=== PATIENT | male | born 1980 | race Caucasian/White ===

== ENCOUNTER 2018-09-17 15:12 | Inpatient (IN) | payer OTHER ==
[2018-09-17] MEDS ORDERED: NS 0.9% 1000 ML*IV.FLUID IV ONE (18:17)
[2018-09-17] MEDS ORDERED: ceFAZolin 1 GM ADVAN(*) 1 GM in NS 0.9% 50 ML* 50 ML IVPB ONE (18:17)
--- NOTE | 2018-09-17 19:01 | ED ---
Skin Complaint - HPI Summary HPI Summary: A 38 y/o male with hx IV drug use presents to [facility] with a chief complaint of abscesses on both arms, redness and swelling of both forearms since 09/15/18. He has been injecting himself with heroin for the past 2-3 yrs, after a period of abstinence for 12 years. He has been using heroin intermittently for 20 years but was also clean for a period of 12 years. He was sent to the ED for possible cellulitis, abscesses vs DVT. Per triage note, he rates his pain as 8/ 10 and also c/o SOB and a low-grade fever. He claims that he last ate at 18: 00. The patient was at [facility] ([facility]) when he was referred to the ED. Pt states that [facility] is a harm reduction program where they try to help pt have access to sterile needles etc, that it is not an abstinence program. Vital signs at triage: HR 97 bpm, BP 145/84 - History of Current Complaint Chief Complaint: EDRashSkinAbscess Time Seen by Provider: 09/17/18 18:17 Stated Complaint: BI LATERAL ARM SWELLING Hx Obtained From: Patient Onset/Duration: Started Days Ago, Still Present Skin Exposure Onset/Duration: Days Ago - self-injecting heroin Timing: Constant, Lasting Days Onset Severity: Severe Current Severity: Severe Pain Intensity: 8 Pain Scale Used: 0-10 Numeric Skin Location: Arm - bilateral forearms Character: Swelling, Pain, Redness, Raised - draining in sites, Painful Aggravating Symptom(s): Nothing Alleviating Symptom(s): Nothing Associated Signs & Symptoms: Chills, Rash - redness bilat forearms, Drainage, Tenderness, Joint Swelling - left thumb Related History: Other: - IV heroin injections - Allergy/Home Medications Allergies/Adverse Reactions: Allergies Allergy/AdvReac Type Severity Reaction Status Date / Time No Known Allergies Allergy Verified 09/17/18 19:25 PMH/Surg Hx/FS Hx/Imm Hx Previously Healthy: No - IVDA for 2-3 years Endocrine/Hematology History: Denies: Hx Diabetes Cardiovascular History: Denies: Hx Hypertension History: Denies: Hx Renal Disease - Surgical History Surgery Procedure, Year, and Place: no surgical hx per pt Infectious Disease History: No Infectious Disease History: Denies: Traveled Outside the [place] in Last 30 Days - Family History Known Family History: Positive: Other - Mother and father are both alive. Grandmother w/ Hx of dementia. - Social History Occupation: Employed Full-time Lives: Alone Alcohol Use: None Hx Substance Use: Yes Substance Use Type: Reports: Heroin, Marijuana Hx Tobacco Use: Yes Smoking Status (MU): Former Smoker Review of Systems Positive: Fever - fever of 100 Cardiovascular: Negative Positive: Shortness Of Breath Gastrointestinal: Negative Positive: no symptoms reported Positive: Arthralgia, Myalgia, Other - bilateral red, swollen forearms with multiple raised areas, and draining left thumb wound Positive: Rash, Other - positive: abscess, redness, swelling bilateral arms. Neurological: Negative Psychological: Normal All Other Systems Reviewed And Are Negative: Yes Physical Exam - Summary Physical Exam Summary: Appearance: Well-appearing, severe pain distress, well-nourished Skin: Warm, color reflects adequate perfusion, no track rondon on feet, Bilateral upper extremities with multiple open, raised areas and redness, Left dorsal thumb 3cm open draining abscess Head: Normal Head/Face inspection, atraumatic Eyes: Conjunctiva clear ENT: Normal inspection Neck: Supple, no nodes, no JVD Respiratory: Lungs clear, normal breath sounds, no respiratory distress Cardio: RRR, No murmur, pulses normal, brisk capillary refill Abdomen: Soft, nontender Bowel sounds: Present Musculoskeletal: Strength Intact/ROM intact, no calf tenderness, swelling bilateral hands with open area left thumb as above, full ROM of bilateral wrists and elbows with redness, multiple raised, "pointing" areas from hands to bilateral antecubital fossae Psychological: Normal, calm and cooperative, not intoxicated. Neuro: Alert, muscle tone normal, no focal deficit Triage Information Reviewed: Yes Vital Signs On Initial Exam: Initial Vitals Temp Pulse Resp BP Pulse Ox 100 F 97 18 145/84 100 09/17/18 15:18 09/17/18 15:18 09/17/18 15:18 09/17/18 15:18 09/17/18 15:18 Vital Signs Reviewed: Yes Diagnostics - Vital Signs Vital Signs Temp Pulse Resp BP Pulse Ox 09/17/18 17:49 100.2 F 91 16 135/92 100 09/17/18 17:14 100.6 F 102 18 146/74 100 09/17/18 15:18 100 F 97 18 145/84 100 - Laboratory Result Diagrams: 09/21/18 06:35 09/18/18 06:46 Lab Statement: Any lab studies that have been ordered have been reviewed, and results considered in the medical decision making process. - Radiology CXR Radiology Interpretation Completed By: ED Physician Summary of Radiographic Findings: NAD. Pending official radiology report. second CXR Radiology Interpretation Completed By: ED Physician Summary of Radiographic Findings: Left subclavean in place. No PTX. Pending official radiology report. - EKG 20:47 Cardiac Rate: Other Rate - Sinus arrythmia at [address] Segment: Non-Specific Ectopy: None EKG Comparison: Other - no prior Summary of EKG Findings: Sinus arrythmia at 98 bpm, nl AVIVCT, nl QTc, no acute changes, no prior to compare with. - Additional Comments Diagnostic Additional Comments: Bilateral Upper Extremity Ultrasounds in progress with results pending at time of change of shift, and sign out of care to hospitalists, 2200, 09/17/18. Re-Evaluation - Re-Evaluation First Eval Re-Evaluation Time: 20:20 Change: Unchanged Comment: Pt is difficult venous access. Blood cultures, fluid and abx are delayed. Dr. Angulo will consult for central venous access. Second Eval Re-Evaluation Time: 21:30 Change: Unchanged Comment: Patient still reports pain. Was at [facility] and referred here. He claims he has an appointment at [facility] to try to start taking suboxone. Course/Dx - Course Course Of Treatment: A 38 y/o male presents to [facility] with a chief complaint of abscesses, redness and swelling of both forearms since 09/15/18. He has a Hx of injecting himself with heroin. The physical exam revealed bilateral upper extremities with multiple open areas and raised and redness, Left dorsal thumb 3cm open draining abscess and bilateral hand swelling. Pt is difficult venous access. Blood cultures, fluids and abx are delayed per sepsis protocol due to difficult venous access. Tmax in the ED is 100.6. Left hand wound is cultured. Left subclavian central line placed by Dr. Angulo for access and phlebotomy. CXR post central line placement shows good line placement, no PTX. Ultrasound of both upper extremities is ordered to eval abscesses vs DVT, with results pending at time care is given to hospitalists. Case discussed with Dr. Ramirez, hospitalist, who assists with choosing broader spectrum antibiotic coverage for likely polymicrobial infection. The patient will be admitted and is agreeable with this plan. - Differential Diagnoses - Skin Complaint Differential Diagnoses: Abscess, Lymphangitis, Other - DVT, sepsis - Diagnoses Provider Diagnoses: Cellulitis, Abscess of multiple sites, Heroin abuse, Sepsis - Physician Notifications Discussed Care Of Patient With: Mary Ramirez Time Discussed With Above Provider: 20:35 Instructed by Provider To: Admit As Inpatient - Critical Care Time Critical Care Time: 30-74 min - 30min Discharge - Sign-Out/Discharge Documenting (check all that apply): Patient Departure - admit - Discharge Plan Condition: Good Disposition: ADMITTED TO [facility] - Billing Disposition and Condition Condition: GOOD Disposition: Admitted to [facility] - Attestation Statements Document Initiated by Lety: Yes Documenting Scribe: Montrell Silverio Provider For Whom Lety is Documenting (Include Credential): Dr. Amelia Lester MD Scribe Attestation: Montrell Ro scribed for Dr. Amelia Lester MD on 09/24/18 at 1655. Scribe Documentation Reviewed: Yes Provider Attestation: The documentation as recorded by the Montrell goff accurately reflects the service I personally performed and the decisions made by me, Dr. Amelia Lester MD Status of Scribe Document: Viewed
[2018-09-17] MEDS ORDERED: Lidocaine 2% EPI 1:200000 MPF* 10 ML VIAL INJ ONE (20:20)
[2018-09-17] MEDS ORDERED: Lidocaine 1%* 5 ML VIAL ONE (20:24)
[2018-09-17] MEDS ORDERED: Lidocaine 1% INJ* 10 MG/ML 30 ML SDV ONE (20:27)
[2018-09-17 20:32] LABS: ABS Basophils 0 10^3/ul (0-0.2); ABS Eosinophils 0.1 10^3/ul (0-0.6); ABS Lymphocytes 1.2 10^3/ul (1.0-4.8); ABS Monocytes 1.3 10^3/ul (0-0.8); ABS Neutrophils 12.4 10^3/ul (1.5-7.7); ABS Nucleated RBC 0 10^3/ul; Eosinophil % 0.4 %; Hematocrit 39 % (42-52); Hemoglobin 13.2 g/dl (14.0-18.0); Lymphocyte % 8.3 %; Mean Corpuscular HGB Conc 34 g/dl (31-36); Mean Corpuscular Hemoglobin 28 pg (27-31); Mean Corpuscular Volume 83 fL (80-94); Mean Platelet Volume 7.4 fL (7.4-10.4); Nucleated Red Blood Cells % 0; Platelet Count 369 10^3/ul (150-450); Red Blood Count 4.71 10^6/ul (4.00-5.40); Red Cell Distribution Width 14 % (10.5-15)
--- NOTE | 2018-09-17 20:43 | ED ---
Re-Evaluation - Re-Evaluation First Eval Re-Evaluation Time: 20:20 Change: Unchanged Comment: Pt is difficult venous access. Blood cultures and abx may be delayed. Course/Dx - Course Course Of Treatment: Pt is difficult venous access. Blood cultures and abx may be delayed. - Diagnoses Provider Diagnoses: Cellulitis Discharge - Sign-Out/Discharge Documenting (check all that apply): Patient Departure - Discharge Plan Condition: Good Disposition: ADMITTED TO [facility] Referrals: [facility] - Jhonny BULL [Primary Care Provider] - - Billing Disposition and Condition Condition: GOOD Disposition: Admitted to [facility] Procedures - Central Line Left Subclavian Central Line Lumen: triple Central Line Procedure: betadine prep, sterile drapes applied, sterile dressing applied Central Line Position: subclavian (L) Anesthesia: Lidocaine cc's of anesthesia: 10 Complications: none Central Line Post Position: sutured, good blood return, position confirmed w/ CXR
[2018-09-17 20:45] LABS: Activated Partial Thrombo Time 30.8 seconds (26.0-36.3); INR 1.19 (0.77-1.02)
[2018-09-17] MEDS ORDERED: Cefepime 2 GM in Dextrose(*) 2 GM/50 ML BAG IV ONE (20:45)
[2018-09-17 20:50] LABS: Albumin/Globulin Ratio 1.4 (1-3); BUN/Creatinine Ratio 12.3 (8-20); C Reactive Protein 127.07 mg/L (<8.01); Calcium 8.8 mg/dL (8.6-10.3); EGFR Non-African American 138.2 (>60); Globulin 2.9 g/dL (2-4); Total Bilirubin 0.6 mg/dL (0.2-1.0); Total Protein 6.9 g/dL (6.4-8.9)
[2018-09-17] MEDS ORDERED: Vancomycin(*) 1,000 MG VIAL IVPB SCH (21:00)
[2018-09-17] MEDS ORDERED: Acetaminophen TAB* 325 MG PO PRN (21:23)
[2018-09-17] MEDS ORDERED: Al Hydrox/Mg Hydrox/Simet LIQ* 30 ML UDC PO PRN (21:23)
[2018-09-17] MEDS ORDERED: Docusate CAP* 100 MG PO PRN (21:23)
[2018-09-17] MEDS ORDERED: Ondansetron INJ* 2 MG/ML VIAL IV PRN (21:23)
[2018-09-17] MEDS ORDERED: Senna TAB PO PRN (21:23)
[2018-09-17] MEDS ORDERED: Vancomycin(*) 2,000 MG in NS 0.9% 500 ML* 500 ML IVPB ONE (21:30)
[2018-09-17] MEDS: Heparin VIAL(*) 5000 UNITS/ML VIAL (FIVE THOUSAND) SUBCUT SCH (22:00)
[2018-09-17] MEDS ORDERED: cefTRIAXone(*) 1 GM in NS 0.9% 50 ML* 50 ML IVPB SCH (22:00)
[2018-09-17] MEDS: Morphine VIAL* 4 MG/ML VIAL (1 ml vial) IV PRN (22:39)
--- NOTE | 2018-09-17 23:58 | HP ---
HISTORY AND PHYSICAL: DATE OF ADMISSION: 09/17/18 TIME OF EVALUATION: 2100 PRIMARY CARE PHYSICIAN: The patient does not have a primary care physician. CHIEF COMPLAINT: Bilateral arm swelling, redness, and drainage. HISTORY OF PRESENT ILLNESS: This is a 38-year-old male with a past medical history of IV drug use, who presented to the emergency room with worsening bilateral redness, swelling, and pain. The patient states he relapsed using IV heroin for the past 2 to 3 years. He states he tries to be as sterile as possible using the needle exchange; however, 2 days ago, he noticed both arms with redness, swelling, and pain. This morning his left hand ruptured with purulent drainage. He has had a fever at home. No nausea, vomiting, or diarrhea. No chest pain or shortness of breath. No abdominal pain, no urinary symptoms. He states he uses IV heroin routinely. He sometimes alternates with taking oral Suboxone when he tries to take a break. He has spoken to the people at [facility] and he is planning to follow up with them next week, but has not yet established with them. He denies any history of significant abscess or cellulitis in the past. He states he has had some redness that would go away on its own in the past. He has been sober for 12 years up until 2 to 3 years ago. In the emergency room, the patient had labs, imaging and initially was going to receive cefazolin, but switched to vancomycin, cefepime, and referred to the hospitalist service for further evaluation. PAST MEDICAL HISTORY: History of IV drug use. MEDICATIONS: Ibuprofen as needed. ALLERGIES: No known drug allergies. FAMILY HISTORY: Reviewed and noncontributory. 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 He lives alone. As mentioned, he uses IV drugs with heroin for the past 2 to 3 years, initially started as a teenager and was sober for about 10 years. He occasionally smokes marijuana. He quit cigarette smoking 15 to 20 years ago. No alcohol use. He does not have a healthcare proxy at this time, but understands the importance of obtaining one. CODE STATUS: Full code. REVIEW OF SYSTEMS: A 14-point review of systems as mentioned in the HPI, otherwise negative. PHYSICAL EXAMINATION GENERAL: No acute distress, resting comfortably with his girlfriend at the bedside. VITAL SIGNS: T-max 100.6, pulse rate 91, respiratory rate 16, oxygen saturation 100% on room air, blood pressure 135/92. HEENT: Head: Normocephalic. Pupils equal and reactive, anicteric. Oropharynx : Mucous membranes moist. NECK: Supple. No adenopathy. RESPIRATORY: Clear to auscultation. No wheezes, rhonchi, or rales. CARDIAC: Regular rate and rhythm. Tachycardia with a soft systolic murmur heard throughout. ABDOMEN: Soft, nontender, nondistended. EXTREMITIES: The patient with bilateral upper extremity erythema. Left is significantly worse with patches of erythema, significant edema in his left forearm, most prominent over the dorsum of his left hand with a 2 cm circular open purulent drainage, indurated and fluctuant. No pain. No significant erythema over the wrist or elbow joint. He has smaller erythematous indurated lesions that appeared to be track rondon on his right upper extremity. Both bilateral upper extremities are significantly edematous. Lower extremities are unremarkable. NEUROLOGIC: Alert and oriented x3. No gross focal neurologic deficits. LABORATORY DATA: White count is 15, hemoglobin 13.2, hematocrit 39, platelets 269. INR is 1.19. Sodium 131, potassium 4, chloride 99, bicarb 26. BUN 8 and creatinine 0.65. Glucose 120. CRP is 127. Lactic acid 0.9. ASSESSMENT: This is a 38-year-old male with past medical history of intravenous drug use, presents to the emergency room with bilateral upper extremity redness, swelling, and pain. 1. Bilateral upper extremity redness, swelling, and pain with purulent drainage in the left hand. Assessment: The patient with intravenous drug use, found to have cellulitis with abscess, most prominent and concerning is the left hand and left forearm. The patient is going to get switched over to vancomycin and he got a dose of cefepime. Will change to ceftriaxone and vancomycin per Dr. Jackson's recommendation until cultures return. He did give blood cultures in the emergency room. We will order a wound culture of the purulent drainage on his left hand. We will order a soft tissue ultrasound to look for any deeper abscess. He also has a Doppler ordered by the ER. We will continue him on IV fluids. We will place him on Toradol and morphine. He should get started on Suboxone at some point and follow up with [facility]. I also will put in a Social Work consult as well. I spoke with Dr. Guerrero regarding I and D. She recommended chlorhexidine, warm soaks 4 times a day, keep the arm elevated and she will follow up with him in the morning. We will keep him n.p.o. in case he needs further debridement. 2. FEN: Regular diet. N.p.o. after midnight. IV fluids. 3. DVT prophylaxis: Patient scores 1, but I suspect he will be limited mobility. We will place him on heparin subcu t.i.d. 4. Code status. Full code. PATIENT TIME: Greater than 45 minutes was spent doing the history and physical , more than half the time spent in direct patient contact and critical care time. [id number]/[facility] #: [id number] RONIT
[2018-09-18] MEDS: Zolpidem TAB* 10 MG PO PRN (00:34)
[2018-09-18] MEDS: Ketorolac INJ* 30 MG/ML 1 ML VIAL IV PUSH PRN ×3 (00:35→17:49)
[2018-09-18] MEDS: NS 0.9% 1000 ML* 1,000 ML IV SCH ×3 (00:58→18:19)
[2018-09-18] MEDS: Morphine VIAL* 4 MG/ML VIAL (1 ml vial) IV PRN ×6 (02:39→22:07)
[2018-09-18] MEDS: cefTRIAXone(*) 1 GM in NS 0.9% 50 ML* 50 ML IVPB SCH (06:38)
[2018-09-18] MEDS: Heparin VIAL(*) 5000 UNITS/ML VIAL (FIVE THOUSAND) SUBCUT SCH ×3 (06:39→22:09)
[2018-09-18 07:12] LABS: ABS Basophils 0.1 10^3/ul (0-0.2); ABS Eosinophils 0.1 10^3/ul (0-0.6); ABS Lymphocytes 1.7 10^3/ul (1.0-4.8); ABS Monocytes 1.3 10^3/ul (0-0.8); ABS Neutrophils 9.7 10^3/ul (1.5-7.7); ABS Nucleated RBC 0 10^3/ul; Eosinophil % 0.5 %; Hematocrit 34 % (42-52); Hemoglobin 11.6 g/dl (14.0-18.0); Lymphocyte % 13.5 %; Mean Corpuscular HGB Conc 34 g/dl (31-36); Mean Corpuscular Hemoglobin 28 pg (27-31); Mean Corpuscular Volume 83 fL (80-94); Mean Platelet Volume 7.6 fL (7.4-10.4); Nucleated Red Blood Cells % 0; Platelet Count 320 10^3/ul (150-450); Red Blood Count 4.14 10^6/ul (4.00-5.40); Red Cell Distribution Width 14 % (10.5-15); White Blood Count 12.9 10^3/ul (3.5-10.8)
[2018-09-18 07:17] LABS: BUN/Creatinine Ratio 11.9 (8-20); EGFR Non-African American 154.6 (>60); Potassium 3.9 mmol/L (3.5-5.0)
--- NOTE | 2018-09-18 09:44 | PN ---
Subjective Date of Service: 09/18/18 Interval History: Pain control OK. Patient feels all infected areas seem somewhat better today. Appetite OK. Objective Active Medications: Acetaminophen (Tylenol Tab*) 650 mg PO Q4H PRN PRN Reason: FEVER/PAIN Al Hydrox/Mg Hydrox/Simethicone (Maalox Plus*) 30 ml PO Q6H PRN PRN Reason: INDIGESTION Docusate Sodium (Colace Cap*) 100 mg PO BID PRN PRN Reason: CONSTIPATION Heparin Sodium (Porcine) (Heparin Vial(*)) 5,000 units SUBCUT Q8HR [facility] Last Admin: 09/18/18 06:39 Dose: 5,000 units Sodium Chloride (Ns 0.9% 1000 Ml*) 1,000 mls @ 125 mls/hr IV PER RATE [facility] Last Admin: 09/18/18 00:58 Dose: 125 mls/hr Ceftriaxone Sodium 1 gm/ (Sodium Chloride) 50 mls @ 200 mls/hr IVPB Q24H [facility] Last Admin: 09/18/18 06:38 Dose: 200 mls/hr Ketorolac Tromethamine (Toradol Inj*) 30 mg IV PUSH Q6H PRN PRN Reason: PAIN Last Admin: 09/18/18 00:35 Dose: 30 mg Morphine Sulfate (Morphine Vial*) 4 mg IV Q4H PRN PRN Reason: PAIN - MILD Last Admin: 09/18/18 06:40 Dose: 4 mg Ondansetron HCl (Zofran Inj*) 4 mg IV Q4H PRN PRN Reason: NAUSEA/VOMITING Senna (Senokot Tab*) 1 tab PO BID PRN PRN Reason: CONSTIPATION Zolpidem Tartrate (Ambien Tab*) 10 mg PO BEDTIME PRN PRN Reason: SLEEP Last Admin: 09/18/18 00:34 Dose: 10 mg Vital Signs - 8 hr 09/18/18 09/18/18 09/18/18 01:56 02:23 02:39 Temperature 99.1 F Pulse Rate Respiratory 18 18 Rate Blood Pressure (mmHg) O2 Sat by Pulse Oximetry 09/18/18 09/18/18 09/18/18 03:13 03:40 06:40 Temperature 99.0 F Pulse Rate 82 Respiratory 21 16 18 Rate Blood Pressure 112/58 (mmHg) O2 Sat by Pulse 93 Oximetry 09/18/18 07:16 Temperature 99.5 F Pulse Rate 87 Respiratory 16 Rate Blood Pressure 118/61 (mmHg) O2 Sat by Pulse 98 Oximetry Oxygen Devices in Use Now: None Appearance: Alert, partly up in bed. In good spirits. Looks comfortable. Extremities: No Edema, No Clubbing, Cyanosis, - Skin: No Nodules or Sclerosis, - - R forearm phlegmon, L forearm phlgmon just below elbow noted. Ulcerated area L thenar eminence. Neurological: Alert and Oriented x 3, NL Sensation Result Diagrams: 09/18/18 06:46 09/18/18 06:46 Microbiology and Other Data: Microbiology 09/17/18 21:00 Skin and Soft Tissue MRSA/MSSA (PCR - Final Hand Left Mrsa Negative S.aureus Positive Gram Stain - Final Assess/Plan/Problems-Billing Assessment:
--- NOTE | 2018-09-18 09:48 | PN ---
Subjective Date of Service: 09/18/18 Interval History: See earlier note today. Objective Active Medications: Acetaminophen (Tylenol Tab*) 650 mg PO Q4H PRN PRN Reason: FEVER/PAIN Al Hydrox/Mg Hydrox/Simethicone (Maalox Plus*) 30 ml PO Q6H PRN PRN Reason: INDIGESTION Docusate Sodium (Colace Cap*) 100 mg PO BID PRN PRN Reason: CONSTIPATION Heparin Sodium (Porcine) (Heparin Vial(*)) 5,000 units SUBCUT Q8HR [facility] Last Admin: 09/18/18 06:39 Dose: 5,000 units Sodium Chloride (Ns 0.9% 1000 Ml*) 1,000 mls @ 125 mls/hr IV PER RATE [facility] Last Admin: 09/18/18 00:58 Dose: 125 mls/hr Ceftriaxone Sodium 1 gm/ (Sodium Chloride) 50 mls @ 200 mls/hr IVPB Q24H [facility] Last Admin: 09/18/18 06:38 Dose: 200 mls/hr Ketorolac Tromethamine (Toradol Inj*) 30 mg IV PUSH Q6H PRN PRN Reason: PAIN Last Admin: 09/18/18 00:35 Dose: 30 mg Morphine Sulfate (Morphine Vial*) 4 mg IV Q4H PRN PRN Reason: PAIN - MILD Last Admin: 09/18/18 06:40 Dose: 4 mg Ondansetron HCl (Zofran Inj*) 4 mg IV Q4H PRN PRN Reason: NAUSEA/VOMITING Senna (Senokot Tab*) 1 tab PO BID PRN PRN Reason: CONSTIPATION Zolpidem Tartrate (Ambien Tab*) 10 mg PO BEDTIME PRN PRN Reason: SLEEP Last Admin: 09/18/18 00:34 Dose: 10 mg Vital Signs - 8 hr 09/18/18 09/18/18 09/18/18 01:56 02:23 02:39 Temperature 99.1 F Pulse Rate Respiratory 18 18 Rate Blood Pressure (mmHg) O2 Sat by Pulse Oximetry 09/18/18 09/18/18 09/18/18 03:13 03:40 06:40 Temperature 99.0 F Pulse Rate 82 Respiratory 21 16 18 Rate Blood Pressure 112/58 (mmHg) O2 Sat by Pulse 93 Oximetry 09/18/18 07:16 Temperature 99.5 F Pulse Rate 87 Respiratory 16 Rate Blood Pressure 118/61 (mmHg) O2 Sat by Pulse 98 Oximetry Oxygen Devices in Use Now: None Result Diagrams: 09/18/18 06:46 09/18/18 06:46 Microbiology and Other Data: Microbiology 09/17/18 21:00 Skin and Soft Tissue MRSA/MSSA (PCR - Final Hand Left Mrsa Negative S.aureus Positive Gram Stain - Final Assess/Plan/Problems-Billing Assessment: - Patient Problems (1) Cellulitis and abscess of hand Current Visit: Yes Status: Acute Code(s): L03.119 - CELLULITIS OF UNSPECIFIED PART OF LIMB; L02.519 - CUTANEOUS ABSCESS OF UNSPECIFIED HAND SNOMED Code(s): 037315648 Comment: Both arms. Clinically has several phlegmons, improving. Continue ceftriaxone. Discussed with Dr. Jackson. Awaiting blovarun C&S results. (2) IV drug abuse Current Visit: Yes Status: Acute Code(s): F19.10 - OTHER PSYCHOACTIVE SUBSTANCE ABUSE, UNCOMPLICATED SNOMED Code(s): 322111727 Comment: Will discuss with CECI.
--- NOTE | 2018-09-18 12:54 | CONS ---
CONSULTATION REPORT: DATE OF CONSULT: 09/18/18 REQUESTING PHYSICIAN: Dr. Ramirez. CONSULTING SERVICE: Infectious Disease. REASON FOR CONSULT: Arm abscess. IMPRESSION: 1. Bilateral arm cellulitis and small subcutaneous abscesses secondary to injection drug use. The one in the left wrist had some purulent drainage, which was cultured showing gram-positive cocci and gram-negative diplococci. The PCR is positive for Staphylococcus aureus and negative for methicillin- resistant Staphylococcus aureus, probably polymicrobial. 2. Injection drug use as before mentioned. 3. Negative human immunodeficiency virus and hepatitis C antibody, 3 months ago. RECOMMENDATIONS: We will continue ceftriaxone. His MRSA PCR was negative. We will stop vancomycin. We will follow the arm symptoms and assuming, it continues to improve, may not need drainage; but if any become more fluctuant, could be revisited. HISTORY OF PRESENT ILLNESS: This is a 38-year-old man uses heroin, over the last week or so developed red swollen spots on both arms, injection sites, and then some diffuse edema in both arms with fever and chills, came to the hospital yesterday. White count of 15,000. Had a dose of vancomycin and cefepime and then ceftriaxone. His CRP was 127. White blood cell count today is 12,000. He had a fever of 38.3 overnight. His blood cultures were sent and pending. The left wrist lesion was swabbed with the results as above. He thinks the swelling of both arms have improved today. He does not have any other infection sites bothering him. No chills or sweats today. His appetite is good. PAST MEDICAL HISTORY: Heroin use. MEDICATIONS: 1. Tylenol. 2. Heparin subcutaneous injection. 3. Ketoralac. 4. Morphine as needed. 5. Ceftriaxone 1 g a day. 6. Ambien. ALLERGIES: No known drug allergies. SOCIAL HISTORY: Lives in [place]. Uses heroin. Had been sober for about a decade. Relapsed 2 years ago. Denies use of alcohol. FAMILY HISTORY: No recurrent infections. REVIEW OF SYSTEMS: A 14-point review all negative except as noted above in the history of present illness. PHYSICAL EXAM: Vital Signs: Temperature 37.5, heart rate 80, respiratory rate 16, blood pressure 118/61, oxygen saturation 98% on room air. In general, he is awake, not in distress. Neurologic: He is oriented x3. Follows all commands. HEENT: There is no conjunctival hemorrhage. Oropharynx without lesions. Neck: Neck is supple without mass. Heart is regular rate and rhythm without murmurs, rubs, or gallops. Lungs: Clear to auscultation bilaterally. Abdomen: Soft, nontender, nondistended. There are bowel sounds present. Skin : There is no splinter hemorrhage or rash. Musculoskeletal: Bilateral diffuse forearm edema. Range of motion of both elbows and wrists are intact. On the left forearm, there is a medial forearm and left medial wrist area of erythema and induration without crepitans. Three areas on the right forearm have linear arrangement with erythema, induration, no fluctuans or crepitans. LABORATORY DATA: White blood cell count 12, hemoglobin 11, platelets 320. Creatinine 0.6. Please see impressions and recommendations outlined above, which I discussed with Dr. Rosenberg. Thank you for asking me to see Ms. Lai in consultation. [id number]/[facility] #: [id number] MTDD
--- NOTE | 2018-09-18 22:05 | CONS ---
CONSULTATION REPORT: DATE OF CONSULT: 09/18/18 ATTENDING PHYSICIAN: Violette Guerrero MD CHIEF COMPLAINT: Bilateral arm swelling with a left hand dorsum wound cellulitis. HISTORY OF PRESENT ILLNESS: Briefly, this is a 38-year-old right hand dominant male with a history o f IV drug abuse who presents to emergency room with bilateral arm redness, swelling, and pain. He re lapsed using heroin after 2 to 3 years off heroin. He states he is trying to be sterile as possible; however, 2 days ago, has noticed his arms with redness, swelling, and pain, left hand rupture with p urulent drainage, has had fever. He was admitted overnight for IV antibiotics. I was consulted last evening and discussed IV antibiotics with soapy soaks. He states that he uses IV heroin regularly, sometimes changes to Suboxone. He has thought about getting into rehab again, but has not actually p roceeded with that. He was sober for 12 years, up to 2 to 3 years ago. He is currently on ceftriaxo ne. PAST MEDICAL HISTORY: IV drug abuse. MEDICATIONS: 1. Toradol. 2. Tylenol. 3. Maalox. 4. Ceftriaxone. 5. Colace. 6. Heparin subcu. 7. Morphine. 8. Ondansetron. 9. Senna. 10. Ambien. ALLERGIES: None. FAMILY HISTORY: Negative. 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 He also does part-time [employer] classes. He lives alone. He uses IV drug use for last 2 to 3 years, was sober for 10 to 12 year s and started again. He occasionally he smokes marijuana. Quit cigarettes about 15 to 20 years ago. No alcohol use. Does not have healthcare proxy. He is right hand dominant. He is a musician. Fu code. REVIEW OF SYSTEMS: A 14-point review of systems reviewed with the patient and significant for fever, bilateral arm pain, drug abuse. Otherwise, remaining systems are negative. PHYSICAL EXAM: He is no acute distress. He is well developed, well nourished. He is alert and orie nted x3. He has pleasant mood and normal affect. Good balance and coordination of lower extremities . Temperature 98.5, pulse rate is 74, oxygen is 100% on room air, blood pressure 97/64. EOMI. Ches t: Clear to auscultation. Heart is regular rate and rhythm. Abdomen: Soft and nontender. Examinat ion of bilateral extremities demonstrates on the right side he has areas of erythema about the antecu bital fossa and distally about the medial aspect of the forearm. He has what looks like a small absc ess developing, but he has full range of motion of the elbow, wrist, and hand. He is sensate to ligh t touch grossly distally. He has brisk cap refill. He does have swelling. The left elbow and hand demonstrates skin intact, no edema, brisk cap refill. Skin is intact at the elbow. On the dorsum of the first dorsal webspace, he has a small 5 mm evidence of eruption with mild erupted abscess. The swelling is decreased. He does have erythema and warmth. He is flex and extend the digits. He does have swelling. He has 2+ radial pulse. He is able to flex and extend his elbow and wrist. Examina tion of the elbow demonstrates, he has a small 4 x 3 what looks like beginning of an abscess. It is not necessarily tender to palpation. Sensate to light touch grossly distally. He has brisk cap refi ll. DIAGNOSTIC STUDIES/LAB DATA: Labs were reviewed from today that demonstrates white count of 12.9 elke n from 15, hematocrit of 34, platelet count of 320. Sodium 136, potassium 3.9, chloride 106, carbon dioxide 23, creatinine 0.59, BUN of 7, glucose 102, calcium 8.0. CRP from yesterday is 127.07. ESR was cancelled for some reason. ASSESSMENT AND PLAN: He has bilateral hand cellulitis, infectious with possible abscess. His pain i s markedly improved. It starts to reveal itself as a small head at the bilateral antecubital fossa. He has had about 12 hours of antibiotics. So at this point, I want to continue 24-hour dose. He is going to be n.p.o. after midnight starting tomorrow and I am going to have my hand colleague, Dr. Heena clancy, see him for possible I and D, whether it is bedside or in the OR. I do think he may need it for his antecubital fossa. For now, I still think he has some streaking and needs to c;ear itself a lit tle bit more. We talked about soapy soaks for his hands. We did talk briefly about rehab. I will s ee the patient back on as needed basis. [id number]/[facility] #: [id number]
[2018-09-19] MEDS: Zolpidem TAB* 10 MG PO PRN ×2 (01:14→22:42)
[2018-09-19] MEDS: Ketorolac INJ* 30 MG/ML 1 ML VIAL IV PUSH PRN ×3 (01:14→18:20)
[2018-09-19] MEDS: Morphine VIAL* 4 MG/ML VIAL (1 ml vial) IV PRN ×5 (01:16→22:43)
[2018-09-19] MEDS: NS 0.9% 1000 ML* 1,000 ML IV SCH ×2 (02:45→11:09)
[2018-09-19] MEDS: cefTRIAXone(*) 1 GM in NS 0.9% 50 ML* 50 ML IVPB SCH (05:20)
[2018-09-19] MEDS: Heparin VIAL(*) 5000 UNITS/ML VIAL (FIVE THOUSAND) SUBCUT SCH ×3 (05:22→22:41)
--- NOTE | 2018-09-19 05:52 | PN ---
Progress Note - Progress Note Date of Service: 09/17/18 Note: Discrepancy on chest x-ray shows a possible PNA Patient was admitted to [facility] Currently receiving IV abx for wound infection likely will cover Hospitalist team to continue to follow plan/meds
--- NOTE | 2018-09-19 09:32 | PN ---
Progress Note - Progress Note Date of Service: 09/19/18 Note: Edgar was seen this morning. His pain is improving. The left dorsal hand wound is still draining copious amounts of purulent material as is the left antecubital abscess. There is another abscess on the left forearm which is not draining. The right arm has at least two abscesses with the larger abscess being in the antecubital region. We will plan for incision and drainage of bilateral arm abscesses in the operating room today. NPO.
[2018-09-19] MEDS ORDERED: Famotidine IV* 10 MG/ML 2 ML (20 mg) IV SLOW PU ONE (13:53)
[2018-09-19] MEDS ORDERED: HYDROcodone/ACETAMIN 5-325 MG* 1 TAB PO PRN (13:54)
[2018-09-19] MEDS ORDERED: Naloxone* 0.4 MG/ML 1 ML VIAL IV PRN (13:54)
[2018-09-19] MEDS ORDERED: DiMENhydriNATE IV* 50 MG/ML VIAL IV PUSH PRN (13:54)
[2018-09-19] MEDS ORDERED: Famotidine IV* 10 MG/ML 2 ML (20 mg) ONE (14:00)
[2018-09-19] MEDS ORDERED: Propofol* 10 MG/ML 20 ML BTL ONE ×2 (14:54→15:12)
[2018-09-19] MEDS ORDERED: fentaNYL* 50 MCG/ML 2 ML VIAL (100 MCG VIAL) ONE ×4 (14:54→17:01)
[2018-09-19] MEDS ORDERED: Lidocaine 2% PF * 5 ML VIAL ONE (14:54)
[2018-09-19] MEDS ORDERED: Ondansetron INJ* 2 MG/ML VIAL ONE (16:01)
[2018-09-19] MEDS ORDERED: Bupivacaine 0.5%* 50 ML VIAL ONE (16:05)
[2018-09-19] MEDS ORDERED: oxyCODONE/Acetamin 5/325 MG* TAB ONE ×2 (16:32→17:00)
[2018-09-19] MEDS: fentaNYL* 50 MCG/ML 2 ML VIAL (100 MCG VIAL) IV PRN ×4 (16:33→17:27)
[2018-09-19] MEDS: oxyCODONE/Acetamin 5/325 MG* TAB PO PRN ×2 (16:47→17:05)
[2018-09-19] MEDS ORDERED: Sodium Citrate/Citric Acid* 15 ML UDC ONE (17:31)
--- NOTE | 2018-09-20 00:46 | OP ---
OPERATIVE REPORT: DATE OF OPERATION: 09/19/18 DATE OF : 82 SURGEON: Ran Pringle MD LIFTER/DRIVER: ALEX Marie ANESTHESIOLOGIST: Dr. Buchanan. ANESTHESIA: General. PRE-OP DIAGNOSIS: Bilateral forearm and hand abscesses. POST-OP DIAGNOSIS: Bilateral forearm and hand abscesses. OPERATIVE PROCEDURE: 1. Incision and drainage of right antecubital abscess. 2. Incision and drainage of right forearm abscess. 3. Incision and drainage of left antecubital abscess. 4. Incision and drainage of left forearm abscess. 5. Incision and drainage of left dorsal hand abscess. INDICATIONS: Edgar has these abscesses secondary to IV drug use. He has been on IV antibiotics. So me of the abscesses are quite large, some had started to drain, but clearly needed to be drained more . We discussed risks and benefits. He understands there will be some scarring associated with this. He wants to proceed. ESTIMATED BLOOD LOSS: 10 mL. COMPLICATIONS: None. FINDINGS: See above and below. DESCRIPTION OF PROCEDURE: Edgar was seen in the preoperative holding area. The correct sides, sites , and procedures were identified. We came back to the operating room and the patient was positioned supine on the OR table with bilateral hand tables. Both arms were prepped and draped in the usual fa shion and timeout was performed. I began on the right arm. I first opened the forearm abscess. It was quite large. There was a large amount of purulent material that came out. A culture was sent. The septations were all broken up an d it was irrigated out and packed with half- inch iodoform packing. I then came to the antecubital f nathan. I opened this one with a small transverse incision, measuring about 1-1/2 cm. Again, there wa s a large amount of purulent material. The abscess was irrigated and cleaned out and then packed wit h iodoform gauze. I then went to the left arm. I drained first the antecubital abscess in a similar fashion. It was p acked with iodoform gauze. I then drained the hand abscess, which was over the dorsoradial aspect of the hand. It had already started draining. I made a second incision more distal to that as there w as a more distal component as well. The septations were thoroughly broken up with a Q-tip. I then i rrigated that out and placed some packing there. Lastly, I went to the forearm where there was a lar ge abscess. This was opened up. There was a large amount of purulence. Again, it was cleaned out a nd then irrigated out and then packed. After all the abscesses were packed, we washed up the arm real ly well, dressings were applied. I had used tourniquet very briefly on each arm. The tourniquet was deflated upon completion of the procedure. Both hands pinked up immediately. He was taken to the r ecovery room in stable condition. The exsanguination was by gravity. [id number]/[facility] #: [id number]
[2018-09-20] MEDS: Morphine VIAL* 4 MG/ML VIAL (1 ml vial) IV PRN ×6 (02:18→21:42)
[2018-09-20] MEDS: Ketorolac INJ* 30 MG/ML 1 ML VIAL IV PUSH PRN ×3 (02:24→16:56)
[2018-09-20] MEDS: Heparin VIAL(*) 5000 UNITS/ML VIAL (FIVE THOUSAND) SUBCUT SCH ×3 (06:28→21:39)
[2018-09-20] MEDS: cefTRIAXone(*) 1 GM in NS 0.9% 50 ML* 50 ML IVPB SCH (06:34)
--- NOTE | 2018-09-20 08:11 | PN ---
Progress Note - Progress Note Date of Service: 09/20/18 SOAP: Subjective: resting in bed, pain improved Objective: Vital Signs Temp Pulse Resp BP Pulse Ox 98.1 F 59 16 105/50 99 09/20/18 07:04 09/20/18 03:26 09/20/18 06:26 09/20/18 03:26 09/20/18 03:26 Laboratory Last Values WBC 12.9 10^3/ul (3.5-10.8) H 09/18/18 06:46 RBC 4.14 10^6/ul (4.00-5.40) 09/18/18 06:46 Hgb 11.6 g/dl (14.0-18.0) L 09/18/18 06:46 Hct 34 % (42-52) L 09/18/18 06:46 MCV 83 fL (80-94) 09/18/18 06:46 MCH 28 pg (27-31) 09/18/18 06:46 MCHC 34 g/dl (31-36) 09/18/18 06:46 RDW 14 % (10.5-15) 09/18/18 06:46 Plt Count 320 10^3/ul (150-450) 09/18/18 06:46 MPV 7.6 fL (7.4-10.4) 09/18/18 06:46 Neut % (Auto) 75.2 % 09/18/18 06:46 Lymph % (Auto) 13.5 % 09/18/18 06:46 [place] % (Auto) 10.3 % 09/18/18 06:46 Eos % (Auto) 0.5 % 09/18/18 06:46 Baso % (Auto) 0.5 % 09/18/18 06:46 Absolute Neuts (auto) 9.7 10^3/ul (1.5-7.7) H 09/18/18 06:46 Absolute Lymphs (auto) 1.7 10^3/ul (1.0-4.8) 09/18/18 06:46 Absolute Monos (auto) 1.3 10^3/ul (0-0.8) H 09/18/18 06:46 Absolute Eos (auto) 0.1 10^3/ul (0-0.6) 09/18/18 06:46 Absolute Basos (auto) 0.1 10^3/ul (0-0.2) 09/18/18 06:46 Absolute Nucleated RBC 0 10^3/ul 09/18/18 06:46 Nucleated RBC % 0 09/18/18 06:46 ESR Cancelled 09/17/18 20:20 INR (Anticoag Therapy) 1.19 (0.77-1.02) H 09/17/18 20:20 APTT 30.8 seconds (26.0-36.3) 09/17/18 20:20 Sodium 136 mmol/L (135-145) 09/18/18 06:46 Potassium 3.9 mmol/L (3.5-5.0) 09/18/18 06:46 Chloride 106 mmol/L (101-111) 09/18/18 06:46 Carbon Dioxide 23 mmol/L (22-32) 09/18/18 06:46 Anion Gap 7 mmol/L (2-11) 09/18/18 06:46 BUN 7 mg/dL (6-24) 09/18/18 06:46 Creatinine 0.59 mg/dL (0.67-1.17) L 09/18/18 06:46 Est GFR ( Amer) 187.0 (>60) 09/18/18 06:46 Est GFR (Non-Af Amer) 154.6 (>60) 09/18/18 06:46 BUN/Creatinine Ratio 11.9 (8-20) 09/18/18 06:46 Glucose 102 mg/dL (70-100) H 09/18/18 06:46 Lactic Acid 0.9 mmol/L (0.5-2.0) 09/17/18 20:20 Calcium 8.0 mg/dL (8.6-10.3) L 09/18/18 06:46 Total Bilirubin 0.60 mg/dL (0.2-1.0) 09/17/18 20:20 AST 13 U/L (13-39) 09/17/18 20:20 ALT 10 U/L (7-52) 09/17/18 20:20 Alkaline Phosphatase 62 U/L (34-104) 09/17/18 20:20 Troponin I 0.00 ng/mL (<0.04) 09/17/18 20:20 C-Reactive Protein 127.07 mg/L (<8.01) H 09/17/18 20:20 Total Protein 6.9 g/dL (6.4-8.9) 09/17/18 20:20 Albumin 4.0 g/dL (3.2-5.2) 09/17/18 20:20 Globulin 2.9 g/dL (2-4) 09/17/18 20:20 Albumin/Globulin Ratio 1.4 (1-3) 09/17/18 20:20 PE: B/L UE wounds mild drainage, erythema much improved Assessment: s/p I&D B/L UE abscesses Plan: 1) BID warm soapy soaks for 15 minutes with dressing changes 2) continue IV abx 3) cultures pending
--- NOTE | 2018-09-20 08:37 | PN ---
Progress Note - Progress Note Date of Service: 09/20/18 Note: Looking much better. Continue ABX and will continue to follow.
--- NOTE | 2018-09-20 08:45 | PN ---
Subjective Date of Service: 09/20/18 Interval History: Patient is status post I&D. Remains afebrile. Objective Active Medications: Acetaminophen (Tylenol Tab*) 650 mg PO Q4H PRN PRN Reason: FEVER/PAIN Al Hydrox/Mg Hydrox/Simethicone (Maalox Plus*) 30 ml PO Q6H PRN PRN Reason: INDIGESTION Docusate Sodium (Colace Cap*) 100 mg PO BID PRN PRN Reason: CONSTIPATION Heparin Sodium (Porcine) (Heparin Vial(*)) 5,000 units SUBCUT Q8HR [facility] Last Admin: 09/20/18 06:28 Dose: 5,000 units Ceftriaxone Sodium 1 gm/ (Sodium Chloride) 50 mls @ 200 mls/hr IVPB Q24H [facility] Last Admin: 09/20/18 06:34 Dose: 200 mls/hr Ketorolac Tromethamine (Toradol Inj*) 30 mg IV PUSH Q6H PRN PRN Reason: PAIN Last Admin: 09/20/18 02:24 Dose: 30 mg Morphine Sulfate (Morphine Vial*) 4 mg IV Q3H PRN PRN Reason: PAIN - MILD Last Admin: 09/20/18 06:26 Dose: 4 mg Ondansetron HCl (Zofran Inj*) 4 mg IV Q4H PRN PRN Reason: NAUSEA/VOMITING Senna (Senokot Tab*) 1 tab PO BID PRN PRN Reason: CONSTIPATION Zolpidem Tartrate (Ambien Tab*) 10 mg PO BEDTIME PRN PRN Reason: SLEEP Last Admin: 09/19/18 22:42 Dose: 10 mg Vital Signs - 8 hr 09/20/18 09/20/18 09/20/18 02:18 03:26 06:26 Temperature 98.0 F Pulse Rate 59 Respiratory 16 16 16 Rate Blood Pressure 105/50 (mmHg) O2 Sat by Pulse 99 Oximetry 09/20/18 09/20/18 07:01 07:04 Temperature 98.1 F Pulse Rate 57 Respiratory 16 Rate Blood Pressure 106/57 (mmHg) O2 Sat by Pulse 100 Oximetry Oxygen Devices in Use Now: None Appearance: Lying in bed, not in distress. Respiratory: Clear to Auscultation Cardiovascular: NL Sounds; No Murmurs; No JVD, RRR Abdominal: NL Sounds; No Tenderness; No Distention Skin: - - At the left hand, area of induration, with tenderness. no drainage. Lines/Tubes/Other Access: Clean, Dry and Intact PICC Line - Placed for IV abx. Result Diagrams: 09/18/18 06:46 09/18/18 06:46 Microbiology and Other Data: Microbiology 09/17/18 21:00 Skin and Soft Tissue MRSA/MSSA (PCR - Final Hand Left Mrsa Negative S.aureus Positive Gram Stain - Final Assess/Plan/Problems-Billing Assessment: 38 yr old Male with IVDU here with abscess at the left hand, pos I&D on 09/19/18. - Patient Problems (1) Cellulitis and abscess of hand Current Visit: Yes Status: Acute Code(s): L03.119 - CELLULITIS OF UNSPECIFIED PART OF LIMB; L02.519 - CUTANEOUS ABSCESS OF UNSPECIFIED HAND SNOMED Code(s): 171158099 Comment: Both arms. Clinically has several phlegmons, improving. Continue ceftriaxone. ID and ortho following. status post I& D on 09/19/18. Blood cultures are negative. (2) IV drug abuse Current Visit: Yes Status: Acute Code(s): F19.10 - OTHER PSYCHOACTIVE SUBSTANCE ABUSE, UNCOMPLICATED SNOMED Code(s): 128815033 Comment: Seen by bunker worker.
[2018-09-20] MEDS: metroNIDAZOLE TAB* 250 MG PO SCH ×2 (13:32→21:38)
[2018-09-21] MEDS: Zolpidem TAB* 10 MG PO PRN (01:03)
[2018-09-21] MEDS: Morphine VIAL* 4 MG/ML VIAL (1 ml vial) IV PRN ×6 (01:04→19:55)
[2018-09-21] MEDS: Ketorolac INJ* 30 MG/ML 1 ML VIAL IV PUSH PRN ×3 (01:08→16:45)
[2018-09-21] MEDS: cefTRIAXone(*) 1 GM in NS 0.9% 50 ML* 50 ML IVPB SCH (06:08)
[2018-09-21] MEDS: Heparin VIAL(*) 5000 UNITS/ML VIAL (FIVE THOUSAND) SUBCUT SCH ×3 (06:14→21:20)
[2018-09-21 07:07] LABS: ABS Basophils 0.1 10^3/ul (0-0.2); ABS Eosinophils 0.3 10^3/ul (0-0.6); ABS Lymphocytes 2.2 10^3/ul (1.0-4.8); ABS Monocytes 0.5 10^3/ul (0-0.8); ABS Nucleated RBC 0 10^3/ul; Eosinophil % 3.6 %; Hematocrit 32 % (42-52); Lymphocyte % 31.9 %; Mean Corpuscular HGB Conc 34 g/dl (31-36); Mean Corpuscular Hemoglobin 28 pg (27-31); Mean Corpuscular Volume 83 fL (80-94); Mean Platelet Volume 7.4 fL (7.4-10.4); Nucleated Red Blood Cells % 0; Platelet Count 317 10^3/ul (150-450); Red Blood Count 3.89 10^6/ul (4.00-5.40); Red Cell Distribution Width 13 % (10.5-15)
--- NOTE | 2018-09-21 10:02 | PN ---
Subjective Date of Service: 09/21/18 Interval History: Doing well, no fever Objective Active Medications: Acetaminophen (Tylenol Tab*) 650 mg PO Q4H PRN PRN Reason: FEVER/PAIN Al Hydrox/Mg Hydrox/Simethicone (Maalox Plus*) 30 ml PO Q6H PRN PRN Reason: INDIGESTION Docusate Sodium (Colace Cap*) 100 mg PO BID PRN PRN Reason: CONSTIPATION Heparin Sodium (Porcine) (Heparin Vial(*)) 5,000 units SUBCUT Q8HR [facility] Last Admin: 09/21/18 06:14 Dose: 5,000 units Heparin Sodium (Porcine) (Heparin Flush Picc/Ml/Cvc(*)) 1 - 3 ml FLUSH 0600, 1800 [facility]; Protocol Last Admin: 09/21/18 06:47 Dose: 2 ml Ceftriaxone Sodium 1 gm/ (Sodium Chloride) 50 mls @ 200 mls/hr IVPB Q24H [facility] Last Admin: 09/21/18 06:08 Dose: 200 mls/hr Ketorolac Tromethamine (Toradol Inj*) 30 mg IV PUSH Q6H PRN PRN Reason: PAIN Last Admin: 09/21/18 01:08 Dose: 30 mg Metronidazole (Flagyl Tab*) 500 mg PO TID [facility] Last Admin: 09/20/18 21:38 Dose: 500 mg Morphine Sulfate (Morphine Vial*) 4 mg IV Q3H PRN PRN Reason: PAIN - MILD Last Admin: 09/21/18 06:42 Dose: 4 mg Ondansetron HCl (Zofran Inj*) 4 mg IV Q4H PRN PRN Reason: NAUSEA/VOMITING Senna (Senokot Tab*) 1 tab PO BID PRN PRN Reason: CONSTIPATION Zolpidem Tartrate (Ambien Tab*) 10 mg PO BEDTIME PRN PRN Reason: SLEEP Last Admin: 09/21/18 01:03 Dose: 10 mg Vital Signs - 8 hr 09/21/18 09/21/18 09/21/18 03:18 06:42 07:28 Temperature 97.9 F 97.8 F Pulse Rate 53 55 Respiratory 16 16 17 Rate Blood Pressure 101/65 114/65 (mmHg) O2 Sat by Pulse 100 99 Oximetry Oxygen Devices in Use Now: None Appearance: Young male sitting on bed, not in distress Eyes: PERRLA Respiratory: Clear to Auscultation Cardiovascular: RRR Skin: - - dressing intact Result Diagrams: 09/21/18 06:35 09/18/18 06:46 Microbiology and Other Data: Microbiology 09/17/18 21:00 Skin and Soft Tissue MRSA/MSSA (PCR - Final Hand Left Mrsa Negative S.aureus Positive Gram Stain - Final Assess/Plan/Problems-Billing Assessment: 38 yr old Male with IVDU here with abscess at the left hand, pos I&D on 09/19/18. - Patient Problems (1) Cellulitis and abscess of hand Current Visit: Yes Status: Acute Code(s): L03.119 - CELLULITIS OF UNSPECIFIED PART OF LIMB; L02.519 - CUTANEOUS ABSCESS OF UNSPECIFIED HAND SNOMED Code(s): 836241181 Comment: Both arms. Clinically has several phlegmons, improving. likely discharge today with augmentin, will need instruction on dressing changes. (2) IV drug abuse Current Visit: Yes Status: Acute Code(s): F19.10 - OTHER PSYCHOACTIVE SUBSTANCE ABUSE, UNCOMPLICATED SNOMED Code(s): 750012650 Comment: Seen by chemical tank worker.
[2018-09-21] MEDS: metroNIDAZOLE TAB* 250 MG PO SCH ×3 (10:08→21:20)
--- NOTE | 2018-09-21 13:19 | PN ---
Progress Note - Progress Note Date of Service: 09/21/18 SOAP: Subjective: []Patient was seen and examined at bedside. He is feeling well and eager to go home. Abscesses of both arms seem to be improving, denies any fever or chills. Objective: []General: Well appearing, NAD UE: Several open areas previously I&D'ed with mild purulence visible wihtin open lesions but no active drainage. Right forearm with one quarter sized area that is fluctuant. Left forearm with a roughly 6x6 cm area with mild erythema and induration. Procedure: timeout completed, verbal consent gained with nursing staff present for bedside I&D of abscess of right forearm which was completed in sterile fashion. Area was cleaned with chloroprep, 1cc 1%lidocaine was injected, an 11 blade was used to make a small roughly 3 mm incision into the abscess, purulent drainage was expressed, pressure dressing and elli wrap were applied. Procedure tolerated well, neurovascularly intact distally after procedure. Bleeding stopped with pressure right away. Assessment: []bilateral upper extremity abscesses s/p I&D, requires bedside I&D of one additional abscess on the right forearm Plan: []WBAT B/L UE BID soapy soaks BL UE Patient was seen and examined with Dr Pringle who agrees with plan Patient should stay in house overnight. Likely DC tomorrow Vital Signs Temp 97.8 F 09/21/18 11:32 Pulse 71 09/21/18 11:32 Resp 17 09/21/18 11:32 BP 131/73 09/21/18 11:32 Pulse Ox 100 09/21/18 11:32 Intake & Output 09/20/18 09/21/18 09/21/18 18:59 06:59 18:59 Intake Total 2713 1300 210 Output Total 0 600 900 Balance 2713 700 -690 Intake: IV Fluids 113 ABX - CEFTRIAXONE 113 Oral 2600 1300 210 Output: Urine 0 600 900 Other: Estimated Void Large # Voids 3 Laboratory Last Values WBC 7.0 10^3/ul (3.5-10.8) 09/21/18 06:35 RBC 3.89 10^6/ul (4.00-5.40) L 09/21/18 06:35 Hgb 11.0 g/dl (14.0-18.0) L 09/21/18 06:35 Hct 32 % (42-52) L 09/21/18 06:35 MCV 83 fL (80-94) 09/21/18 06:35 MCH 28 pg (27-31) 09/21/18 06:35 MCHC 34 g/dl (31-36) 09/21/18 06:35 RDW 13 % (10.5-15) 09/21/18 06:35 Plt Count 317 10^3/ul (150-450) 09/21/18 06:35 MPV 7.4 fL (7.4-10.4) 09/21/18 06:35 Neut % (Auto) 56.4 % 09/21/18 06:35 Lymph % (Auto) 31.9 % 09/21/18 06:35 [place] % (Auto) 6.8 % 09/21/18 06:35 Eos % (Auto) 3.6 % 09/21/18 06:35 Baso % (Auto) 1.3 % 09/21/18 06:35 Absolute Neuts (auto) 4.0 10^3/ul (1.5-7.7) 09/21/18 06:35 Absolute Lymphs (auto) 2.2 10^3/ul (1.0-4.8) 09/21/18 06:35 Absolute Monos (auto) 0.5 10^3/ul (0-0.8) 09/21/18 06:35 Absolute Eos (auto) 0.3 10^3/ul (0-0.6) 09/21/18 06:35 Absolute Basos (auto) 0.1 10^3/ul (0-0.2) 09/21/18 06:35 Absolute Nucleated RBC 0 10^3/ul 09/21/18 06:35 Nucleated RBC % 0 09/21/18 06:35 ESR Cancelled 09/17/18 20:20 INR (Anticoag Therapy) 1.19 (0.77-1.02) H 09/17/18 20:20 APTT 30.8 seconds (26.0-36.3) 09/17/18 20:20 Sodium 136 mmol/L (135-145) 09/18/18 06:46 Potassium 3.9 mmol/L (3.5-5.0) 09/18/18 06:46 Chloride 106 mmol/L (101-111) 09/18/18 06:46 Carbon Dioxide 23 mmol/L (22-32) 09/18/18 06:46 Anion Gap 7 mmol/L (2-11) 09/18/18 06:46 BUN 7 mg/dL (6-24) 09/18/18 06:46 Creatinine 0.59 mg/dL (0.67-1.17) L 09/18/18 06:46 Est GFR ( Amer) 187.0 (>60) 09/18/18 06:46 Est GFR (Non-Af Amer) 154.6 (>60) 09/18/18 06:46 BUN/Creatinine Ratio 11.9 (8-20) 09/18/18 06:46 Glucose 102 mg/dL (70-100) H 09/18/18 06:46 Lactic Acid 0.9 mmol/L (0.5-2.0) 09/17/18 20:20 Calcium 8.0 mg/dL (8.6-10.3) L 09/18/18 06:46 Total Bilirubin 0.60 mg/dL (0.2-1.0) 09/17/18 20:20 AST 13 U/L (13-39) 09/17/18 20:20 ALT 10 U/L (7-52) 09/17/18 20:20 Alkaline Phosphatase 62 U/L (34-104) 09/17/18 20:20 Troponin I 0.00 ng/mL (<0.04) 09/17/18 20:20 C-Reactive Protein 127.07 mg/L (<8.01) H 09/17/18 20:20 Total Protein 6.9 g/dL (6.4-8.9) 09/17/18 20:20 Albumin 4.0 g/dL (3.2-5.2) 09/17/18 20:20 Globulin 2.9 g/dL (2-4) 09/17/18 20:20 Albumin/Globulin Ratio 1.4 (1-3) 09/17/18 20:20
[2018-09-22] MEDS: Ketorolac INJ* 30 MG/ML 1 ML VIAL IV PUSH PRN ×2 (00:13→09:46)
[2018-09-22] MEDS: Morphine VIAL* 4 MG/ML VIAL (1 ml vial) IV PRN ×4 (00:17→13:26)
[2018-09-22] MEDS: Zolpidem TAB* 10 MG PO PRN (00:22)
[2018-09-22] MEDS: cefTRIAXone(*) 1 GM in NS 0.9% 50 ML* 50 ML IVPB SCH (05:34)
[2018-09-22] MEDS: Heparin VIAL(*) 5000 UNITS/ML VIAL (FIVE THOUSAND) SUBCUT SCH ×2 (05:38→13:27)
[2018-09-22] MEDS: metroNIDAZOLE TAB* 250 MG PO SCH ×2 (09:26→13:25)
--- NOTE | 2018-09-22 11:23 | PN ---
Progress Note - Progress Note Date of Service: 09/22/18 SOAP: Subjective: []Patient seen and examined at bedside. He feels well without report of fever, chills, arm pain. Feels all lesions are improving. Objective: []General: Well appearing, NAD BL UE: Several open areas previously I&D'ed with mild purulence visible at base of lesions but no active drainage. Area I&D'ed yesterday on right forearm is soft and nontender without continued drainage. Left forearm erythematous area located on the medial distal aspect is less erythematous, less indurated and reduced in size from yesterday with no proximal streaking. There are currently no fluctuant or painful areas that have not been addressed. Assessment: []bilateral upper extremity abscesses s/p I&D Plan: []WBAT B/L UE BID soapy soaks BL UE. When not soaking all lesions should be covered with sterile gauze and elli wrap Okay for DC home today, follow up with Dr Pringle next week Call orthopedic office for appointment, call sooner with fever, chills, new areas of redness, pain, abscess, lack of improvement Vital Signs Temp 98.1 F 09/22/18 07:23 Pulse 52 09/22/18 07:23 Resp 18 09/22/18 09:30 BP 118/70 09/22/18 07:23 Pulse Ox 99 09/22/18 07:23 Intake & Output 09/21/18 09/22/18 09/22/18 18:59 06:59 18:59 Intake Total 530 1300 360 Output Total 1600 1000 Balance -1070 300 360 Intake: Oral 530 1300 360 Output: Urine 1600 1000 Laboratory Last Values WBC 7.0 10^3/ul (3.5-10.8) 09/21/18 06:35 RBC 3.89 10^6/ul (4.00-5.40) L 09/21/18 06:35 Hgb 11.0 g/dl (14.0-18.0) L 09/21/18 06:35 Hct 32 % (42-52) L 09/21/18 06:35 MCV 83 fL (80-94) 09/21/18 06:35 MCH 28 pg (27-31) 09/21/18 06:35 MCHC 34 g/dl (31-36) 09/21/18 06:35 RDW 13 % (10.5-15) 09/21/18 06:35 Plt Count 317 10^3/ul (150-450) 09/21/18 06:35 MPV 7.4 fL (7.4-10.4) 09/21/18 06:35 Neut % (Auto) 56.4 % 09/21/18 06:35 Lymph % (Auto) 31.9 % 09/21/18 06:35 [place] % (Auto) 6.8 % 09/21/18 06:35 Eos % (Auto) 3.6 % 09/21/18 06:35 Baso % (Auto) 1.3 % 09/21/18 06:35 Absolute Neuts (auto) 4.0 10^3/ul (1.5-7.7) 09/21/18 06:35 Absolute Lymphs (auto) 2.2 10^3/ul (1.0-4.8) 09/21/18 06:35 Absolute Monos (auto) 0.5 10^3/ul (0-0.8) 09/21/18 06:35 Absolute Eos (auto) 0.3 10^3/ul (0-0.6) 09/21/18 06:35 Absolute Basos (auto) 0.1 10^3/ul (0-0.2) 09/21/18 06:35 Absolute Nucleated RBC 0 10^3/ul 09/21/18 06:35 Nucleated RBC % 0 09/21/18 06:35 ESR Cancelled 09/17/18 20:20 INR (Anticoag Therapy) 1.19 (0.77-1.02) H 09/17/18 20:20 APTT 30.8 seconds (26.0-36.3) 09/17/18 20:20 Sodium 136 mmol/L (135-145) 09/18/18 06:46 Potassium 3.9 mmol/L (3.5-5.0) 09/18/18 06:46 Chloride 106 mmol/L (101-111) 09/18/18 06:46 Carbon Dioxide 23 mmol/L (22-32) 09/18/18 06:46 Anion Gap 7 mmol/L (2-11) 09/18/18 06:46 BUN 7 mg/dL (6-24) 09/18/18 06:46 Creatinine 0.59 mg/dL (0.67-1.17) L 09/18/18 06:46 Est GFR ( Amer) 187.0 (>60) 09/18/18 06:46 Est GFR (Non-Af Amer) 154.6 (>60) 09/18/18 06:46 BUN/Creatinine Ratio 11.9 (8-20) 09/18/18 06:46 Glucose 102 mg/dL (70-100) H 09/18/18 06:46 Lactic Acid 0.9 mmol/L (0.5-2.0) 09/17/18 20:20 Calcium 8.0 mg/dL (8.6-10.3) L 09/18/18 06:46 Total Bilirubin 0.60 mg/dL (0.2-1.0) 09/17/18 20:20 AST 13 U/L (13-39) 09/17/18 20:20 ALT 10 U/L (7-52) 09/17/18 20:20 Alkaline Phosphatase 62 U/L (34-104) 09/17/18 20:20 Troponin I 0.00 ng/mL (<0.04) 09/17/18 20:20 C-Reactive Protein 127.07 mg/L (<8.01) H 09/17/18 20:20 Total Protein 6.9 g/dL (6.4-8.9) 09/17/18 20:20 Albumin 4.0 g/dL (3.2-5.2) 09/17/18 20:20 Globulin 2.9 g/dL (2-4) 09/17/18 20:20 Albumin/Globulin Ratio 1.4 (1-3) 09/17/18 20:20
--- NOTE | 2018-09-22 12:28 | PN ---
Subjective Date of Service: 09/22/18 Interval History: status post I&D yesterday doing well, discussed with ortho PA Objective Active Medications: Acetaminophen (Tylenol Tab*) 650 mg PO Q4H PRN PRN Reason: FEVER/PAIN Al Hydrox/Mg Hydrox/Simethicone (Maalox Plus*) 30 ml PO Q6H PRN PRN Reason: INDIGESTION Docusate Sodium (Colace Cap*) 100 mg PO BID PRN PRN Reason: CONSTIPATION Heparin Sodium (Porcine) (Heparin Vial(*)) 5,000 units SUBCUT Q8HR [facility] Last Admin: 09/22/18 05:38 Dose: 5,000 units Heparin Sodium (Porcine) (Heparin Flush Picc/Ml/Cvc(*)) 1 - 3 ml FLUSH 0600, 1800 [facility]; Protocol Last Admin: 09/22/18 06:05 Dose: 3 ml Ceftriaxone Sodium 1 gm/ (Sodium Chloride) 50 mls @ 200 mls/hr IVPB Q24H [facility] Last Admin: 09/22/18 05:34 Dose: 200 mls/hr Ketorolac Tromethamine (Toradol Inj*) 30 mg IV PUSH Q6H PRN PRN Reason: PAIN Last Admin: 09/22/18 09:46 Dose: 30 mg Metronidazole (Flagyl Tab*) 500 mg PO TID [facility] Last Admin: 09/22/18 09:26 Dose: 500 mg Morphine Sulfate (Morphine Vial*) 4 mg IV Q3H PRN PRN Reason: PAIN - MILD Last Admin: 09/22/18 09:27 Dose: 4 mg Ondansetron HCl (Zofran Inj*) 4 mg IV Q4H PRN PRN Reason: NAUSEA/VOMITING Senna (Senokot Tab*) 1 tab PO BID PRN PRN Reason: CONSTIPATION Zolpidem Tartrate (Ambien Tab*) 10 mg PO BEDTIME PRN PRN Reason: SLEEP Last Admin: 09/22/18 00:22 Dose: 10 mg Vital Signs - 8 hr 09/22/18 09/22/18 09/22/18 05:29 06:03 07:05 Temperature 98.1 F Pulse Rate 57 Respiratory 17 16 16 Rate Blood Pressure 109/67 (mmHg) O2 Sat by Pulse 100 Oximetry 09/22/18 09/22/18 09/22/18 07:23 09:27 09:30 Temperature 98.1 F Pulse Rate 52 Respiratory 17 18 18 Rate Blood Pressure 118/70 (mmHg) O2 Sat by Pulse 99 Oximetry Oxygen Devices in Use Now: None Respiratory: Clear to Palpation Cardiovascular: NL Sounds; No Murmurs; No JVD, RRR Skin: - - numerous abscess noted. Result Diagrams: 09/21/18 06:35 09/18/18 06:46 Microbiology and Other Data: Microbiology 09/17/18 21:00 Skin and Soft Tissue MRSA/MSSA (PCR - Final Hand Left Mrsa Negative S.aureus Positive Gram Stain - Final Assess/Plan/Problems-Billing Assessment: 38 yr old Male with IVDU here with abscess at the left hand, pos I&D on 09/19/18. - Patient Problems (1) Cellulitis and abscess of hand Current Visit: Yes Status: Acute Code(s): L03.119 - CELLULITIS OF UNSPECIFIED PART OF LIMB; L02.519 - CUTANEOUS ABSCESS OF UNSPECIFIED HAND SNOMED Code(s): 713419208 Comment: Both arms. Clinically has several phlegmons, improving. likely discharge today with augmentin, will need instruction on dressing changes. yesterday discharge got cancelled due to him needing another I&D. (2) IV drug abuse Current Visit: Yes Status: Acute Code(s): F19.10 - OTHER PSYCHOACTIVE SUBSTANCE ABUSE, UNCOMPLICATED SNOMED Code(s): 170317735 Comment: Seen by sex worker or escort. Status and Disposition: [facility] discharge today, waiting to hear back from surgeon
[2018-09-22 14:27] VITALS: BP 127/71
--- NOTE | 2018-09-22 20:00 | DS ---
CC: Dr. Pringle; [facility] * DISCHARGE SUMMARY: DATE OF ADMISSION: 09/17/18 DATE OF DISCHARGE: 09/22/18 PRIMARY CARE PROVIDER: The patient does not have a primary care provider, referral was made. REASON FOR ADMISSION: Bilateral arm swelling, redness and drainage. HOSPITAL COURSE: This is a 38-year-old male with history of IV drug use, who had presented to the emergency room because of bilateral worsening redness, swelling, and pain. Please see the H and P dictated by Dr. Mary Ramirez for further details. The patient in the emergency room was found to have bilateral cellulitis with abscesses of the bilateral upper extremities. Infectious Disease, Dr. Jackson was consulted. The patient was initially started vancomycin. He received a cefepime in the emergency room and was also started on Rocephin. Blood cultures were sent. Dr. Guerrero, surgeon was also consulted , and was recommended for incision and drainage. The patient was started on n.p.o. after midnight, IV fluids were initiated and the patient was sent to the medical floor. Through the course, the patient was seen by the surgeon, the patient had an incision and drainage for which the cultures were sent. Cultures grew multi- bacteria, Staph aureus MSSA, Streptococcus intermedius as well as Eikenella corrodens. Yesterday, 09/21/18, the patient received another incision and drainage at bedside. The patient continued to do better. Through the hospital course, the patient was afebrile. His labs on admission, white count was 15.0, on 09/21/18 the white count was 7.0. roundhouse worker was consulted because the patient has IV drug use, referral was also made. PHYSICAL EXAMINATION: For my physical examination, please see my progress note from today. DISCHARGE MEDICATIONS: Include: 1. Amoxicillin clavulanate 875/125 twice a day for 10 days, 20 tablets were sent to the pharmacy. 2. Toradol 10 mg every 6 hours as needed for pain, 20 tablets were also sent for this. DISCHARGE INSTRUCTIONS: The patient was referred to the REACH program as well as referral was made for [facility]. The patient to follow up with the primary care doctor within a week. The patient will return to the emergency room for fevers, worsening hand pain, skin lesions, or increased pus drainage. The patient was advised for weightbearing as tolerated at bilateral arms, wound care instructions include twice daily soapy soaks bilateral upper extremities, when not soaking all lesions should be covered with sterile gauze and Sonu wraps. The patient to follow up with Dr. Pringle next week. The patient to call the Orthopedic office, phone number was given, call sooner if he develops any fevers , chills, or new areas of erythema, pain, or abscesses or if the patient does not get any better. DISCHARGE DIAGNOSIS: Includes bilateral upper extremity abscess. [id number]/CPS #: [id number] [facility]
== END 2018-09-22 14:45 | disposition home or self-care (01) | DRG 580 ==
LOC: ED 15:12 → SSU 21:23
PROVIDERS: ADMIT Pediatrics; ATTEND Internal Medicine
PROC: 0J9G0ZZ Drainage of Right Lower Arm Subcutaneous Tissue and Fascia, Open Approach (ICD-10-PCS; 2018-09-19)
PROC: 0J9H0ZZ Drainage of Left Lower Arm Subcutaneous Tissue and Fascia, Open Approach (ICD-10-PCS; 2018-09-19)
PROC: 0J9G0ZZ Drainage of Right Lower Arm Subcutaneous Tissue and Fascia, Open Approach (ICD-10-PCS; 2018-09-19)
PROC: 0J9K0ZZ Drainage of Left Hand Subcutaneous Tissue and Fascia, Open Approach (ICD-10-PCS; principal; 2018-09-19 15:00)
DX: L02.413 Cutaneous abscess of right upper limb (principal); L02.512 Cutaneous abscess of left hand; L02.511 Cutaneous abscess of right hand; L02.414 Cutaneous abscess of left upper limb; L03.114 Cellulitis of left upper limb; L03.113 Cellulitis of right upper limb; B95.61 Methicillin susceptible Staphylococcus aureus infection as the cause of diseases classified elsewhere; B95.4 Other streptococcus as the cause of diseases classified elsewhere; B96.89 Other specified bacterial agents as the cause of diseases classified elsewhere; F11.10 Opioid abuse, uncomplicated; F10.21 Alcohol dependence, in remission; Z87.891 Personal history of nicotine dependence; Z79.1 Long term (current) use of non-steroidal anti-inflammatories (NSAID)
CPT/HCPCS: 36415; 71045; 80048; 80053; 83605; 84484; 85025; 85610; 85730; 86140; 87040; 87070; 87073; 87076; 87077; 87150; 87185; 87186; 87205; 87640; 87641; 93005; 93970; 99284; A9270-GY; J0692; J0696; J1644; J1885; J2270; J2405; J2704; J3010; J3370